=== PATIENT | male | born 1990 | race Caucasian/White ===

== ENCOUNTER 2022-05-21 13:23 | Emergency (ER) | payer OTHER, SELFPAY ==
[2022-05-21 13:46] VITALS: BP 150/92; PULSE 114; RESP 18; TEMP 37.1; O2SAT 98
--- NOTE | 2022-05-21 14:09 | ED.GENADULT ---
HPI - General Adult General Chief complaint: Upper Respiratory Infection Stated complaint: sorethroat Time Seen by Provider: 05/21/22 14:09 Source: patient Mode of arrival: ambulatory Limitations: no limitations History of Present Illness HPI narrative: 32-year-old male patient presents to the [facility] with complaints of a sore throat body aches, chills congestion and a cough for the past 3 days. Patient states that his and his kids had strep last week and he is concerned he may have strep now. Related Data Home Medications Medication Instructions Recorded Confirmed No Home Medications 05/21/22 05/21/22 Allergies Allergy/AdvReac Type Severity Reaction Status Date / Time No Known Allergies Allergy Verified 05/21/22 14:06 Review of Systems Review of Systems: CONSTITUTIONAL: Positive fever, chills, or sweats. EYES: Denies visual changes, redness, or discharge. ENT: Denies rhinorrhea, positive congestion, positive sore throat, positive bilateral otalgia. CARDIOVASCULAR: Denies chest pain, palpitations, or edema. RESPIRATORY: positive cough or dyspnea. GASTROINTESTINAL: Denies abdominal pain, nausea, vomiting, or diarrhea. GENITOURINARY: Denies dysuria or hematuria. SKIN: Denies rash or itching. MUSCULOSKELETAL: Denies back pain, joint pain, or myalgia. NEUROLOGIC: Denies headache, numbness, or weakness. PSYCHIATRIC: Denies anxiety or depression. [facility] Past Medical History Medical History (Updated 05/21/22 @ 14:17 by JACKSON Pereira) No significant past medical history Comments at the time of my signature I agree with nursing past medical history, surgical, social, and family history. There is no relevant family history pertinent to the presenting complaint. Exam Narrative: GENERAL: Well-appearing, well-nourished, and in no acute distress. HEAD: Normocephalic, atraumatic. EYES: PERRLA and EOMI. ENT: Nares clear, no rhinorrhea or epistaxis. Mucous membranes moist. posterior pharynx no erythema, tonsillar edema, exudates or lesions present. Bilateral TMs are clear no erythema or foreign bodies the canal. NECK: Supple. No lymphadenopathy CHEST: Clear to auscultation. No respiratory distress. HEART: Regular rate and rhythm. No murmur heard. Normal peripheral pulses. ABDOMEN: Soft, nontender, nondistended, normal active bowel sounds. EXTREMITIES: Normal range of motion. No edema. SKIN: Warm, dry, no rash. NEURO: No focal deficits. Alert and oriented x3. Course Course Level of Care: Express Care Visit Vital Signs Vital signs: Vital Signs Temperature 37.1 C 05/21/22 13:46 Pulse Rate 114 H 05/21/22 13:46 Respiratory Rate 18 05/21/22 13:46 Blood Pressure 150/92 H 05/21/22 13:46 Pulse Oximetry 98 05/21/22 13:46 Oxygen Delivery Room Air 05/21/22 13:46 Temperature 37.1 C 05/21/22 13:46 Pulse Rate 114 H 05/21/22 13:46 Respiratory Rate 18 05/21/22 13:46 Blood Pressure 150/92 H 05/21/22 13:46 Pulse Oximetry 98 05/21/22 13:46 Oxygen Delivery Room Air 05/21/22 13:46 Medical Decision Making MDM Narrative Medical decision making narrative: Discussed with patient that his strep test today is negative and I do not see any clinical signs at this time that he might have strep. We will send the swab to the lab for verification if it does come back positive we will call him in an antibiotic at that time. Differential Diagnosis Differential Diagnosis: Differential diagnosis: Viral pharyngitis, pharyngitis, group A strep, infectious mononucleosis, gonococcal pharyngitis, exudative pharyngitis, oral candidiasis. Chronic allergies, postnasal drip, GERD, abscess formation, but glottitis, retropharyngeal abscess formation, or airway obstruction. Vital Signs Vital Signs: Vital Signs Temperature 37.1 C 05/21/22 13:46 Pulse Rate 114 H 05/21/22 13:46 Respiratory Rate 18 05/21/22 13:46 Blood Pressure 150/92 H 05/21/22 13:46 Pulse Oximetry 98 02
== END 2022-05-21 14:34 | disposition home or self-care (01) ==
PROVIDERS: Emergency Provider Nurse Practitioner Family
DX: J02.9 Acute pharyngitis, unspecified (principal)
CPT/HCPCS: 87081; 87880; 99203; G0463